=== PATIENT | female | born 1945 | race Caucasian/White ===

== ENCOUNTER 2017-11-05 06:25 | Day surgery (SDC) | payer MEDICARE ==
[~2017-11-05] VITALS: Ht 172.7 cm; Wt 103.9 kg
[~2017-11-05 06:25] MED LIST: ASPIR-TRIN325 MG PO; BACLOFEN10 MG PO; BUPROPION HCL100 M1 PO; NITROSTAT0.3 MG SL; TRANSDERM-SCOP1 EA TD; VITAMIN C250 M1 PO; VITAMIN D-32000 UNIT PO; ZOFRAN ODT8 MG PO
[2017-11-05] MEDS ORDERED: LISINOPRIL20 MG PO (06:41)
--- NOTE | 2017-11-05 08:15 | NUR ---
11/05/17 0815 Vivian Palencia 0810 PT ARRVIED TO PACU ASLEEP, REACTIVE AND ON 3L NC. RESP EVEN AND UNLABORED.
--- NOTE | 2017-11-06 06:44 | OR ---
[facility] [address], [place] [address] Signed DATE OF OPERATION: 11/05/2017 SURGEON: Jose De Jesus Sprague MD PREOPERATIVE DIAGNOSES: 1. Personal history of multiple colonic polyps. 2. Constipation. POSTOPERATIVE DIAGNOSES: 1. A 5 mm polyp, base of cecum. 2. A 5 mm polyps x7 in right colon. 3. A 5 mm polyps x3 at hepatic flexure. 4. A single diverticulum, right colon. 5. Moderate internal hemorrhoids. PROCEDURE(S) PERFORMED: Colonoscopy snare polypectomy and hot biopsy. ESTIMATED BLOOD LOSS: None. INDICATIONS: Cari is a 72-year-old female, who comes four years after her last colonoscopy. She has had more than 28 colonic polyps removed in total; some had moderate dysplasia. In the meantime, Cari is doing well. She always has some constipation. We have asked to use Benefiber. She has had some intentional weight loss as well. In the meantime, her . I can tell she has more energy on this occasion. She gives no family history of colon cancer or polyps. In the office, I gave her a pamphlet on colonoscopy, we looked at that together along with the risks including, but not limited to gas bloating, crampy abdominal pain, bleeding, perforation, requiring surgery, and missed diagnosis. She understands the need for IV conscious sedation. She expressed understanding and wished to proceed. PROCEDURE NOTE: Cari was taken into our endoscopy suite and placed in the left lateral decubitus position. She was given divided doses of 8 mg of Versed and 150 mcg of fentanyl. A digital rectal exam was performed and this was unremarkable. The adult colonoscope was introduced and advanced under direct visualization of camera without difficulty. Her prep was good; it took some extra sedation and abdominal compression to get the scope all the way into the cecum itself. The above-mentioned polyps were removed with hot Electronically Signed By: JOSE DE JESUS SPRAGUE MD 11/05/17 0929 Electronically Signed By: JOSE DE JESUS SPRAGUE MD 11/06/17 0846 PATIENT NAME: CARI TIDWELL OPERATIVE REPORT DATE OF : 43 REPORT #: [id number] PHYSICIAN: JOSE DE JESUS SPRAGUE MD PCP: UNASSIGNED DOCTOR REPORT IS CONFIDENTIAL AND NOT TO BE RELEASED WITHOUT AUTHORIZATION [facility] [address], [place] [address] Signed biopsy forceps. There was one polyp on the back a fold in the hepatic flexure that required the snare to capture and removed. We saw a single diverticulum in the right colon. The rest of the colon was fine. The rectum was unremarkable. Upon retroflexion of scope, she does have moderate internal hemorrhoids. After this, the gas was suctioned out. The colonoscope removed. Cari tolerated the procedure quite well. RECOMMENDATIONS: I will see Cari back in my office in 7 to 14 days to review her results. She will need to stay on a 3 to 5 year colonoscopy rotation. Jose De Jesus Sprague MD ALB/MODL /[id number] cc: MD Eleanor Maya MD Frank E Szumski, DO Copies: JANUARY REYES MD, MERSHED MD SZUMSKI, FRANK E DO ~ Electronically Signed By: JOSE DE JESUS SPRAGUE MD 11/05/17 0929 Electronically Signed By: JOSE DE JESUS SPRAGUE MD 11/06/17 0846 PATIENT NAME: CARI TIDWELL OPERATIVE REPORT DATE OF : 43 REPORT #: [id number] PHYSICIAN: JOSE DE JESUS SPRAGUE MD PCP: UNASSIGNED DOCTOR REPORT IS CONFIDENTIAL AND NOT TO BE RELEASED WITHOUT AUTHORIZATION
== END 2017-11-05 09:00 | disposition home or self-care (01) ==
LOC: OPS 06:25 → DS 06:30 → OPS 06:45
PROVIDERS: Colon & Rectal Surgery
PROC: 0DBL8ZZ Excision of Transverse Colon, Via Natural or Artificial Opening Endoscopic (ICD-10-PCS; 2017-11-05)
PROC: 0DBF8ZZ Excision of Right Large Intestine, Via Natural or Artificial Opening Endoscopic (ICD-10-PCS; 2017-11-05)
PROC: 0DBH8ZZ Excision of Cecum, Via Natural or Artificial Opening Endoscopic (ICD-10-PCS; principal; 2017-11-05 06:45)
DX: Z12.11 Encounter for screening for malignant neoplasm of colon (principal); D12.2 Benign neoplasm of ascending colon; D12.3 Benign neoplasm of transverse colon; D12.0 Benign neoplasm of cecum; K21.9 Gastro-esophageal reflux disease without esophagitis; E66.9 Obesity, unspecified; F32.9 Major depressive disorder, single episode, unspecified; G20 Parkinson's disease; Z86.010 Personal history of colon polyps; Z88.0 Allergy status to penicillin; Z79.899 Other long term (current) drug therapy; Z68.34 Body mass index [BMI] 34.0-34.9, adult; Z88.1 Allergy status to other antibiotic agents; Z88.5 Allergy status to narcotic agent
CPT/HCPCS: 88305; 99153; G0500; J2250; J3010; J7120